=== PATIENT | female | born 1945 | race African-American/Black ===

== ENCOUNTER 2018-05-25 01:20 | Inpatient (IN) | payer MEDICARE, MEDICAID ==
[~2018-05-25] VITALS: Ht 149.9 cm; Wt 54.9 kg
[~2018-05-25 01:20] MED LIST: ASPI-1158 PO; CLOP75TA16 PO; HYDR-4001 PO; LISINOPRIL PO; METF-416 PO; NORVASC PO; OMEP20CA4 PO; ONDA4TAB50 PO
[2018-05-25] MEDS ORDERED: SODIUM CHLORIDE 0.9% 1,000 ML IV ONE ×2 (01:46→03:15)
[2018-05-25] MEDS ORDERED: KETOROLAC 30MG/ML VIAL IV STA (01:46)
[2018-05-25 02:41] LABS: BASOPHILS % 0.4 % (0.0-2.0); EOSINOPHILS % 0.1 % (0.0-5.0); HEMATOCRIT. 46.2 % (36.0-48.0); HEMOGLOBIN. 15.5 g/dL (12.0-16.0); LYMPHOCYTES % 16.6 % (20.0-50.0); MEAN CORPUSCULAR HEMOGLOBIN 30.5 pg (28.0-32.0); MEAN CORPUSCULAR VOLUME 90.9 fL (81.0-99.0); MEAN PLATELET VOLUME 9.6 fl (7.4-10.4); NEUTROPHILS % 75.9 % (40.0-76.0); PLATELET 336 x1000/uL (130-400); RED BLOOD CELL COUNT 5.08 mill/uL (4.2-5.4); RED CELL DISTRIBUTION WIDTH 13.1 % (11.6-14.6)
[2018-05-25 02:42] LABS: CHLORIDE 101 mEq/L (98-107)
[2018-05-25 02:44] LABS: PARTIAL THROMBOPLASTIN TIME 22.3 sec (23.4-31.0); PROTHROMBIN TIME 10.4 sec (9.1-11.1)
[2018-05-25] MEDS ORDERED: MORPHINE SULFATE 4 MG/ML CPJ (NOT FOR IM USE) IV ONE (02:45)
[2018-05-25] MEDS ORDERED: MORPHINE SULFATE 2 MG/ML CPJ (NOT FOR IM USE) IV SCH (02:46)
[2018-05-25 02:49] LABS: BETA HYDROXYBUTYRATE 0.4 mMol/L (0.0-0.3)
[2018-05-25] MEDS ORDERED: ONDANSETRON HCL 4MG/2ML INJ IV ONE (04:00)
[2018-05-25] MEDS ORDERED: ASPIRIN 325MG EC TABLET PO SCH (04:02)
[2018-05-25] MEDS ORDERED: PIPERACILLIN SODIUM/TAZOBACTAM 4.5 G in DEXT 5% WATER 100 ML IV SCH (06:00)
[2018-05-25] MEDS ORDERED: ACETAMINOPHEN 325MG TABLET PO PRN (09:00)
[2018-05-25] MEDS ORDERED: HYDROCODONE/ACETAMINOPHEN 5/325MG TABLET PO PRN (09:00)
[2018-05-25] MEDS ORDERED: PIPERACILLIN/TAZ 3.375G PREMIX 50 ML IV SCH (09:00)
[2018-05-25] MEDS ORDERED: MAGNESIUM/ALUMINUM HYDROXIDE/SIMETHICONE 30ML UDC PO PRN (09:00)
[2018-05-25] MEDS ORDERED: GUAIFENESIN 200MG/10ML SUGAR FREE UDC PO PRN (09:00)
[2018-05-25] MEDS ORDERED: CLONIDINE 0.1MG TABLET PO PRN (09:00)
[2018-05-25] MEDS ORDERED: CLOPIDOGREL 75MG TABLET PO ONE (09:00)
[2018-05-25] MEDS ORDERED: AMLODIPINE 5MG TABLET PO NR (09:30)
[2018-05-25 09:37] LABS: BASOPHILS % 0.9 % (0.0-2.0); EOSINOPHILS % 0.5 % (0.0-5.0); HEMATOCRIT. 42.1 % (36.0-48.0); HEMOGLOBIN. 14.2 g/dL (12.0-16.0); LYMPHOCYTES % 21.9 % (20.0-50.0); MEAN CORPUSCULAR HEMOGLOBIN 30.5 pg (28.0-32.0); MEAN CORPUSCULAR VOLUME 90.4 fL (81.0-99.0); MEAN PLATELET VOLUME 8.2 fl (7.4-10.4); NEUTROPHILS % 64.7 % (40.0-76.0); PLATELET 309 x1000/uL (130-400); RED BLOOD CELL COUNT 4.65 mill/uL (4.2-5.4); RED CELL DISTRIBUTION WIDTH 13.3 % (11.6-14.6)
[2018-05-25 09:45] LABS: CHLORIDE 105 mEq/L (98-107)
[2018-05-25] MEDS: ONDANSETRON HCL 4MG/2ML INJ IV PRN (09:45)
[2018-05-25] MEDS: HYDROMORPHONE HCL/PF 2MG/ML CPJ IV PRN ×3 (09:45→21:01)
[2018-05-25 09:52] LABS: LDL CHOLESTEROL 110 mg/dL (5-100)
[2018-05-25 09:58] LABS: HDL CHOLESTEROL 58 mg/dL (40-59)
[2018-05-25 11:06] VITALS: BP 155/79
[2018-05-25 11:15] VITALS: BP 152/79
[2018-05-25] MEDS: IPRATROPIUM/ALBUTEROL 0.5-3(2.5)MG/3ML NEB HHN SCH ×3 (12:00→19:59)
[2018-05-25] MEDS ORDERED: DEXTROSE 50% WATER 50ML SYRINGE IV PRN (12:00)
[2018-05-25] MEDS: CLOPIDOGREL 75MG TABLET PO SCH (12:13)
[2018-05-25] MEDS: AMLODIPINE 5MG TABLET PO SCH (12:13)
[2018-05-25] MEDS: DOCUSATE SODIUM 100MG CAPSULE PO SCH (12:13)
[2018-05-25] MEDS: ENOXAPARIN 40MG/0.4ML SYR SUBCUT SCH (12:14)
[2018-05-25] MEDS: ASPIRIN 81MG EC TABLET PO SCH (12:14)
[2018-05-25] MEDS: BLOOD SUGAR DIAGNOSTIC STRIP TEST SCH ×3 (12:20→20:24)
[2018-05-25] MEDS: INSULIN LISPRO 100 UNITS/ML SUBCUT SCH ×3 (12:47→20:24)
[2018-05-25] MEDS: PIPERACILLIN/TAZ 2.25G PREMIX 50 ML IV SCH ×2 (13:43→17:47)
[2018-05-25 16:00] VITALS: BP 126/76
[2018-05-25 16:43] LABS: CLARITY URINE CLOUDY (CLEAR); COLOR URINE YELLOW (YELLOW); KETONES URINE TRACE (NEGATIVE); LEUKOCYTE ESTERASE URINE 2+ (NEGATIVE); NITRITE URINE NEGATIVE (NEGATIVE); OCCULT BLOOD URINE 2+ (NEGATIVE); PROTEIN URINE 3+ (NEGATIVE); UROBILINOGEN URINE 0.2 E.U./dL (0.2-1.0)
[2018-05-25 17:02] LABS: *AMPHETAMINES SCREEN URINE NEGATIVE (NEGATIVE); *BARBITURATES SCREEN URINE NEGATIVE (NEGATIVE); *BENZODIAZEPINES SCREEN URINE NEGATIVE (NEGATIVE); CANNABINOID URINE SCREEN PRESUMTIVE POSITIVE (NEGATIVE); PHENCYCLIDINE URINE SCREEN NEGATIVE (NEGATIVE)
[2018-05-25 17:03] LABS: *COCAINE SCREEN URINE NEGATIVE (NEGATIVE); METHADONE URINE SCREEN NEGATIVE (NEGATIVE); OPIATES URINE SCREEN PRESUMTIVE POSITIVE (NEGATIVE)
[2018-05-25] MEDS ORDERED: MAGNESIUM HYDROXIDE 400MG/5ML 30ML UDC PO PRN (17:30)
[2018-05-25 18:54] LABS: CREATINE KINASE MB FRACTION 5.9 ng/mL (0.5-3.6)
[2018-05-25 20:00] VITALS: BP 147/71
[2018-05-25] MEDS: HYDROCORTISONE 1% RECTAL CREAM 30GM PR SCH (21:01)
[2018-05-26] VITALS (7 sets, daily range): BP systolic 116–155; BP diastolic 55–75
[2018-05-26] MEDS: IPRATROPIUM/ALBUTEROL 0.5-3(2.5)MG/3ML NEB HHN SCH ×5 (00:10→20:20)
[2018-05-26] MEDS: PIPERACILLIN/TAZ 2.25G PREMIX 50 ML IV SCH ×5 (00:26→23:03)
[2018-05-26] MEDS: HYDROMORPHONE HCL/PF 2MG/ML CPJ IV PRN ×4 (04:14→23:24)
[2018-05-26] MEDS: OMEPRAZOLE 20MG CAPSULE EXTENDED RELEASE PO SCH (06:36)
[2018-05-26] MEDS: BLOOD SUGAR DIAGNOSTIC STRIP TEST SCH ×4 (06:36→20:50)
[2018-05-26] MEDS: INSULIN LISPRO 100 UNITS/ML SUBCUT SCH ×4 (07:50→20:53)
[2018-05-26] MEDS: DOCUSATE SODIUM 100MG CAPSULE PO SCH (09:00)
[2018-05-26] MEDS: CLOPIDOGREL 75MG TABLET PO SCH (09:32)
[2018-05-26] MEDS: ASPIRIN 81MG EC TABLET PO SCH (09:32)
[2018-05-26] MEDS: HYDROCORTISONE 1% RECTAL CREAM 30GM PR SCH ×2 (09:33→20:47)
[2018-05-26] MEDS: AMLODIPINE 5MG TABLET PO SCH (09:33)
[2018-05-26] MEDS: ENOXAPARIN 40MG/0.4ML SYR SUBCUT SCH (09:33)
[2018-05-26] MEDS: ONDANSETRON HCL 4MG/2ML INJ IV PRN (13:08)
[2018-05-26 13:10] LABS: BASOPHILS % 1.1 % (0.0-2.0); EOSINOPHILS % 1.4 % (0.0-5.0); HEMATOCRIT. 39.4 % (36.0-48.0); LYMPHOCYTES % 29.7 % (20.0-50.0); MEAN CORPUSCULAR HEMOGLOBIN 30.1 pg (28.0-32.0); MEAN CORPUSCULAR VOLUME 90.9 fL (81.0-99.0); MEAN PLATELET VOLUME 9.1 fl (7.4-10.4); MONOCYTES % 9.4 % (2.0-8.0); NEUTROPHILS % 58.4 % (40.0-76.0); PLATELET 291 x1000/uL (130-400); RED BLOOD CELL COUNT 4.34 mill/uL (4.2-5.4); RED CELL DISTRIBUTION WIDTH 13.3 % (11.6-14.6)
[2018-05-26 13:24] LABS: CHLORIDE 98 mEq/L (98-107)
[2018-05-26] MEDS: ZOLPIDEM TARTRATE 5MG TABLET PO PRN (23:03)
[2018-05-27] MEDS: IPRATROPIUM/ALBUTEROL 0.5-3(2.5)MG/3ML NEB HHN SCH ×6 (00:45→20:00)
[2018-05-27 04:00] VITALS: BP 113/58
[2018-05-27] MEDS: PIPERACILLIN/TAZ 2.25G PREMIX 50 ML IV SCH ×3 (05:33→17:25)
[2018-05-27] MEDS: OMEPRAZOLE 20MG CAPSULE EXTENDED RELEASE PO SCH (06:34)
[2018-05-27] MEDS: BLOOD SUGAR DIAGNOSTIC STRIP TEST SCH ×4 (06:35→21:59)
[2018-05-27] MEDS: INSULIN LISPRO 100 UNITS/ML SUBCUT SCH ×4 (06:37→21:00)
[2018-05-27 07:59] VITALS: BP 141/64
[2018-05-27] MEDS: ONDANSETRON HCL 4MG/2ML INJ IV PRN ×2 (08:30→12:44)
[2018-05-27 08:31] LABS: CHLORIDE 103 mEq/L (98-107)
[2018-05-27] MEDS: HYDROMORPHONE HCL/PF 2MG/ML CPJ IV PRN ×3 (08:31→18:51)
[2018-05-27] MEDS: ENOXAPARIN 40MG/0.4ML SYR SUBCUT SCH (08:31)
[2018-05-27] MEDS: CLOPIDOGREL 75MG TABLET PO SCH (08:32)
[2018-05-27] MEDS: ASPIRIN 81MG EC TABLET PO SCH (08:32)
[2018-05-27] MEDS: DOCUSATE SODIUM 100MG CAPSULE PO SCH (08:32)
[2018-05-27] MEDS: AMLODIPINE 5MG TABLET PO SCH (08:33)
[2018-05-27] MEDS: HYDROCORTISONE 1% RECTAL CREAM 30GM PR SCH ×2 (08:33→21:59)
[2018-05-27 08:38] LABS: BASOPHILS % 1.1 % (0.0-2.0); HEMATOCRIT. 36.4 % (36.0-48.0); HEMOGLOBIN. 12.1 g/dL (12.0-16.0); LYMPHOCYTES % 29.3 % (20.0-50.0); MEAN CORPUSCULAR HEMOGLOBIN 30.1 pg (28.0-32.0); MEAN CORPUSCULAR VOLUME 90.3 fL (81.0-99.0); MEAN PLATELET VOLUME 9.1 fl (7.4-10.4); MONOCYTES % 12.9 % (2.0-8.0); NEUTROPHILS % 53.7 % (40.0-76.0); PLATELET 288 x1000/uL (130-400); RED BLOOD CELL COUNT 4.03 mill/uL (4.2-5.4); RED CELL DISTRIBUTION WIDTH 12.8 % (11.6-14.6)
[2018-05-27] MEDS ORDERED: MAGNESIUM 2 G PREMIX 50 ML IV ONE (09:15)
[2018-05-27] MEDS: POTASSIUM CHLORIDE 20MEQ TABLET SR PO SCH ×2 (09:35→17:25)
[2018-05-27 12:24] VITALS: BP 136/73
[2018-05-27 16:38] VITALS: BP 130/70
[2018-05-27] MEDS: PANTOPRAZOLE SODIUM 40 MG/VIAL IV SCH (17:25)
[2018-05-27 20:48] VITALS: BP 135/59
[2018-05-27] MEDS: ZOLPIDEM TARTRATE 5MG TABLET PO PRN (22:15)
[2018-05-28] VITALS: BP 118/62
[2018-05-28] MEDS: PIPERACILLIN/TAZ 2.25G PREMIX 50 ML IV SCH ×3 (00:57→11:28)
[2018-05-28] MEDS: IPRATROPIUM/ALBUTEROL 0.5-3(2.5)MG/3ML NEB HHN SCH ×4 (01:30→12:00)
[2018-05-28] MEDS: POTASSIUM CHLORIDE 20MEQ TABLET SR PO SCH ×2 (02:30→08:44)
[2018-05-28 04:00] VITALS: BP 138/58
[2018-05-28] MEDS: HYDROMORPHONE HCL/PF 2MG/ML CPJ IV PRN (05:46)
[2018-05-28] MEDS: BLOOD SUGAR DIAGNOSTIC STRIP TEST SCH ×2 (06:25→11:29)
[2018-05-28] MEDS: OMEPRAZOLE 20MG CAPSULE EXTENDED RELEASE PO SCH (06:25)
[2018-05-28] MEDS: INSULIN LISPRO 100 UNITS/ML SUBCUT SCH ×2 (07:50→11:29)
[2018-05-28 08:32] VITALS: BP_SYST 132; BP_SYST 139; BP_DIAS 61; BP_DIAS 64
[2018-05-28] MEDS: PANTOPRAZOLE SODIUM 40 MG/VIAL IV SCH (08:43)
[2018-05-28] MEDS: ENOXAPARIN 40MG/0.4ML SYR SUBCUT SCH (08:43)
[2018-05-28] MEDS: HYDROCORTISONE 1% RECTAL CREAM 30GM PR SCH (08:43)
[2018-05-28] MEDS: AMLODIPINE 5MG TABLET PO SCH (08:44)
[2018-05-28] MEDS: ASPIRIN 81MG EC TABLET PO SCH (08:44)
[2018-05-28] MEDS: CLOPIDOGREL 75MG TABLET PO SCH (08:44)
[2018-05-28] MEDS ORDERED: LISINOPRIL 5MG TABLET PO SCH (09:00)
[2018-05-28] MEDS ORDERED: DOCUSATE SODIUM 250MG CAPSULE PO SCH (09:00)
[2018-05-28] MEDS ORDERED: FLUCONAZOLE 150MG TABLET PO NR (10:00)
[2018-05-28 10:50] VITALS: BP_SYST 132; BP_SYST 150; BP_DIAS 61; BP_DIAS 75
[2018-05-28 12:27] VITALS: BP 150/75
== END 2018-05-28 14:25 | disposition home or self-care (01) | DRG 918 ==
LOC: ER 01:34 → EDBEDREQ 01:48 → 6WST 05:02 → EDBEDREQTM 05:03 → EDBEDREQ 05:03 → ENRESERV 09:10
PROVIDERS: ADMIT Internal Medicine Geriatric Medicine; ATTEND Internal Medicine Geriatric Medicine
DX: T40.7X1A Poisoning by cannabis (derivatives), accidental (unintentional), initial encounter (principal); I11.0 Hypertensive heart disease with heart failure; I25.10 Atherosclerotic heart disease of native coronary artery without angina pectoris; E11.9 Type 2 diabetes mellitus without complications; E88.09 Other disorders of plasma-protein metabolism, not elsewhere classified; K59.00 Constipation, unspecified; J44.9 Chronic obstructive pulmonary disease, unspecified; I50.9 Heart failure, unspecified; E78.5 Hyperlipidemia, unspecified; E87.6 Hypokalemia; F12.10 Cannabis abuse, uncomplicated; G40.909 Epilepsy, unspecified, not intractable, without status epilepticus; G89.4 Chronic pain syndrome; D72.829 Elevated white blood cell count, unspecified; R74.8 Abnormal levels of other serum enzymes; K64.9 Unspecified hemorrhoids; R10.9 Unspecified abdominal pain; K21.9 Gastro-esophageal reflux disease without esophagitis; I25.2 Old myocardial infarction; Z95.5 Presence of coronary angioplasty implant and graft; Z87.440 Personal history of urinary (tract) infections; Z90.49 Acquired absence of other specified parts of digestive tract; Z90.710 Acquired absence of both cervix and uterus; Z90.722 Acquired absence of ovaries, bilateral; Z88.1 Allergy status to other antibiotic agents; Z91.048 Other nonmedicinal substance allergy status; Z91.013 Allergy to seafood; Z79.82 Long term (current) use of aspirin; Z79.899 Other long term (current) drug therapy; Z79.02 Long term (current) use of antithrombotics/antiplatelets; Z87.891 Personal history of nicotine dependence; Y92.89 Other specified places as the place of occurrence of the external cause
CPT/HCPCS: 36415; 71045; 74176; 76770; 80048; 80061; 80305; 82010; 82270; 82553; 82575; 82962; 83036; 83605; 83735; 84156; 84484; 87015; 87045; 87077; 87106; 87427; 87449; 89055; 93005; 93970; 96365; 96375; 97162; 99285; C9113; J1170; J1650; J1885; J2270; J2405; J2543; J7030; J7050; J7060; J7620

== ENCOUNTER 2018-09-10 23:49 | Emergency (ER) | payer MEDICARE, MEDICAID ==
[~2018-09-10] VITALS: Ht 162.6 cm; Wt 72.0 kg
[2018-09-11] MEDS ORDERED: METOCLOPRAMIDE HCL 10MG/2ML VIAL IV STA (00:31)
[2018-09-11] MEDS ORDERED: SODIUM CHLORIDE 0.9% 1,000 ML IV ONE (00:31)
[2018-09-11] MEDS ORDERED: DICYCLOMINE HCL 10MG/ML 2ML AMP IM ONE (00:45)
[2018-09-11 01:50] LABS: BASOPHILS % 0.8 % (0.0-2.0); EOSINOPHILS % 0.8 % (0.0-5.0); HEMATOCRIT. 42.5 % (36.0-48.0); HEMOGLOBIN. 14.3 g/dL (12.0-16.0); LYMPHOCYTES % 17.5 % (20.0-50.0); MEAN CORPUSCULAR HEMOGLOBIN 30.3 pg (28.0-32.0); MEAN CORPUSCULAR VOLUME 90.2 fL (81.0-99.0); MONOCYTES % 7.5 % (2.0-8.0); NEUTROPHILS % 73.4 % (40.0-76.0); PLATELET 407 x1000/uL (130-400); RED BLOOD CELL COUNT 4.72 mill/uL (4.2-5.4); RED CELL DISTRIBUTION WIDTH 13.1 % (11.6-14.6)
[2018-09-11 01:55] LABS: CHLORIDE 101 mEq/L (98-107)
[2018-09-11 04:59] VITALS: BP 166/91
== END 2018-09-11 05:40 | disposition home or self-care (01) ==
LOC: ER 23:49
DX: G89.29 Other chronic pain (principal); R10.9 Unspecified abdominal pain; R11.10 Vomiting, unspecified; I11.9 Hypertensive heart disease without heart failure; I25.2 Old myocardial infarction; E11.9 Type 2 diabetes mellitus without complications; R56.9 Unspecified convulsions; Z88.8 Allergy status to other drugs, medicaments and biological substances; Z79.82 Long term (current) use of aspirin; Z90.49 Acquired absence of other specified parts of digestive tract
CPT/HCPCS: 36415; 74022; 74176; 80053; 83605; 83690; 85025; 96361; 96372; 96374; 99284; C1893; J0500; J2765; J7030

== ENCOUNTER → 2019-06-06 | Outpatient (CLI) | payer MEDICARE, MEDICAID ==
[~2019-06-06] MED LIST changes: -CLOP75TA16 PO; +CLOP75TA4 PO; +LIDOCAINE HCL 1% 20ML VIAL (Pyxis) INJ ONE; +REGADENOSON 0.4 MG/5 ML IV ONE
== END | disposition home or self-care (01) ==
LOC: NM 08:50
PROVIDERS: ATTEND Internal Medicine Cardiovascular Disease
DX: I25.10 Atherosclerotic heart disease of native coronary artery without angina pectoris (principal); I25.9 Chronic ischemic heart disease, unspecified; Z79.82 Long term (current) use of aspirin; Z79.899 Other long term (current) drug therapy; Z79.84 Long term (current) use of oral hypoglycemic drugs; Z88.8 Allergy status to other drugs, medicaments and biological substances; Z91.041 Radiographic dye allergy status; Z82.49 Family history of ischemic heart disease and other diseases of the circulatory system; Z83.3 Family history of diabetes mellitus
CPT/HCPCS: 36573; 78452; 93017; A9500; C1725; C1751; C1893; J2785; J3490; 76937

== ENCOUNTER 2021-02-17 20:29 | Emergency (ER) | payer MEDICARE, MEDICAID ==
[~2021-02-17] VITALS: Ht 167.6 cm; Wt 55.0 kg
[~2021-02-17 20:29] MED LIST changes: -ASPI-1158 PO; +ASPI-1406 PO; -LIDOCAINE HCL 1% 20ML VIAL (Pyxis) INJ ONE; -REGADENOSON 0.4 MG/5 ML IV ONE
[2021-02-17] MEDS ORDERED: SODIUM CHLORIDE 0.9% 1,000 ML IV ONE (22:30)
[2021-02-17] MEDS: ONDANSETRON HCL 4MG/2ML INJ IV STA (23:43)
[2021-02-17] MEDS: MORPHINE SULFATE 4 MG/ML CPJ (NOT FOR IM USE) IV STA (23:43)
[2021-02-17] MEDS: PANTOPRAZOLE SODIUM 40 MG/VIAL IV ONE (23:43)
[2021-02-17 23:44] LABS: BASOPHILS % 0.4 % (0.0-2.0); EOSINOPHILS % 0.1 % (0.0-5.0); HEMATOCRIT. 43.9 % (36.0-48.0); HEMOGLOBIN. 14.8 g/dL (12.0-16.0); LYMPHOCYTES % 8.5 % (20.0-50.0); MEAN CORPUSCULAR VOLUME 89.3 fL (81.0-99.0); MEAN PLATELET VOLUME 8.6 fl (7.4-10.4); MONOCYTES % 3.3 % (2.0-8.0); NEUTROPHILS % 87.7 % (40.0-76.0); RED BLOOD CELL COUNT 4.92 mill/uL (4.2-5.4); RED CELL DISTRIBUTION WIDTH 13.8 % (11.6-14.6)
[2021-02-17 23:59] LABS: PLATELET 445 x1000/uL (130-400)
[2021-02-18 00:02] LABS: CHLORIDE 106 mEq/L (98-107)
[2021-02-18 00:08] LABS: ETHANOL BLOOD < 10 mg/dL
[2021-02-18 00:43] LABS: PROTHROMBIN TIME 10.8 sec (9.6-11.0)
[2021-02-18] MEDS ORDERED: ONDA4TAB11 PO (02:51)
[2021-02-18] MEDS ORDERED: DICY20TA11 MT (02:51)
[2021-02-18 02:56] LABS: CLARITY URINE CLOUDY (CLEAR); COLOR URINE DARK YELLOW (YELLOW); KETONES URINE 1+ (NEGATIVE); LEUKOCYTE ESTERASE URINE 1+ (NEGATIVE); NITRITE URINE NEGATIVE (NEGATIVE); OCCULT BLOOD URINE 2+ (NEGATIVE); PROTEIN URINE 3+ (NEGATIVE); SPECIFIC GRAVITY URINE 1.022 (1.005-1.030); UROBILINOGEN URINE 0.2 E.U./dL (0.2-1.0)
[2021-02-18 03:07] LABS: *AMPHETAMINES SCREEN URINE NEGATIVE (NEGATIVE); *BARBITURATES SCREEN URINE NEGATIVE (NEGATIVE); *BENZODIAZEPINES SCREEN URINE NEGATIVE (NEGATIVE); *COCAINE SCREEN URINE NEGATIVE (NEGATIVE)
[2021-02-18 03:08] LABS: CANNABINOID URINE SCREEN PRESUMTIVE POSITIVE (NEGATIVE); METHADONE URINE SCREEN NEGATIVE (NEGATIVE); OPIATES URINE SCREEN PRESUMTIVE POSITIVE (NEGATIVE); PHENCYCLIDINE URINE SCREEN NEGATIVE (NEGATIVE)
[2021-02-18] MEDS ORDERED: LEVO500T89 MT (03:58)
[2021-02-18 04:01] VITALS: BP 148/92
[2021-02-18] MEDS: DICYCLOMINE HCL 20MG TABLET PO STA (04:22)
[2021-02-18] MEDS: LEVOFLOXACIN 500MG TABLET PO ONE (04:22)
== END 2021-02-18 04:52 | disposition home or self-care (01) ==
LOC: ER 20:29
DX: N39.0 Urinary tract infection, site not specified (principal); J45.909 Unspecified asthma, uncomplicated; E11.9 Type 2 diabetes mellitus without complications; Z91.041 Radiographic dye allergy status; Z88.1 Allergy status to other antibiotic agents; Z88.6 Allergy status to analgesic agent; Z79.899 Other long term (current) drug therapy; Z90.49 Acquired absence of other specified parts of digestive tract
CPT/HCPCS: 36415; 74176; 80053; 80305; 80320; 81003; 84484; 85025; 93005; 96374; 96375; 99285; C9113; J2270; J2405; J7030; G0480